=== PATIENT | male | born 1965 | race Caucasian/White ===

== ENCOUNTER → 2016-08-16 | Outpatient (CLI) | payer OTHER ==
--- NOTE | 2016-08-17 06:31 | PAP/PSG TECHNICIAN REPORT ---
[facility] Director Of Software Development Polysomnogram Report Study name: None Report date: 08/17/2016 Study date: 08/16/2016 Referring Physician: Jenny Appiah M.D. Name: MISTI MORALES Interpreting Physician: Lionel Guido D.O. Date of : 1965 Director Of Software Development: Janet Allen [facility]. Sex: Male Age: 51 Study Type: PSG Weight: 210 lbs Height: 51 years, Height 6' 1" BMI: 27.7 Medications: ALLOPURINOL 300 MG, CETIRIZINE 10 MG, EMTRICITABINE 200 MG/TENOFOVIR 300 MG, FLUTICASONE PROPIONATE, HEPATITIS B VACCINE, HYDROQUINONE, LEVOTHYROXINE 0.1 MG, LISINOPRIL 10 MG, OMEPRAZOLE 20 MG, RIVAROXARAN 20 MG, SILDENAFIL CITRATE 100 MG, SODIUM CHLORIDE 0.65% NASAL SPRAY Patient History 51 yr-old male here for a baseline study. He has a history of witnessed apnea while in recovery from surgery. His [place] scale is 11. The test was started on room air. ETCO2 testing was not utilized during this study. Room 3 Parameters Monitored NPSG: E1-M2, E2-M1, Fp1-M2, Fp2-M1, F3-M2, F4-M2, F4-M1, C3-M2, C4-M2, C4-M1, O1-M2, O2-M2, O2-M1, T3-M2, T4-M1, P3-M2, P4-M1, CHIN1, CHIN2, HR, EKG, Legs, PFLOW, SNOR, FLOW, CFLOW, Tidal Volume, THOR, ABDO, SpO2, PLTH, CPRESS, ETCO2 Wave, ETCO2, pH Sleep Architecture Sleep Stages Time at Lights Off 10:56:53 PM STAGES Time (min.) TST (%) Time at Lights On 5:48:23 AM Wake 55.0 -- Total Recording Time (TRT) 411.50 min. N1 34.0 10 Total Sleep Period (TSP) 385.5 min. N2 216.0 61 Total Sleep Time (TST) 356.5min. N3 0.0 0 Awake Time 55.0 min. REM 106.5 30 Wake after Sleep Onset 29.0 min. Sleep Efficiency (SE) 87 % Sleep Onset Latency (YAYO) 26.0 min. Number of Stage 1 Shifts None Awakenings 9 Stage Changes 36 Number of REM periods 5 REM 106.5 30 REM Latency 72.5 min. NREM 250.0 70 Body Position Analysis Supine Right Left Side Prone Vertical Total Sleep Time (min.) 76.3 99.0 208.5 307.50 0.0 0.0 Total Sleep Time (%) 14% 28% 58% 86 0% N/A% Total Sleep Time REM (min.) 12.0 24.0 70.5 None 0.0 0.0 Total Sleep Time NREM (min.) 37.0 75.0 138.0 None 0.0 0.0 Intermittent Wake (min.) 27.3 15.0 12.8 None 0.0 0.0 Total Sleep Period (%) 16% None None None None None Arousals Myoclonus (PLM) * Events Count Index Events Count Index Spontaneous 17 3 Events Awake (PLMW) 32 34.9 Respiratory 2 0.5 Events Asleep w/ Arousal (PLMA) 5 0.8 PLM 5 1 Events Asleep w/o Arousal (PLMS) 28 4.7 Snoring 8 1 Total Asleep 33 5.6 Total 32 5 Total 65 9 Respiratory Analysis * CA OA MA CH H RERA Total Count 0 0 0 0 13 3 13 Index 0.0 0.0 0.0 0 2.2 1 2.7 Mean Duration 0.0 0.0 0.0 0.00 21.3 18.9 20.8 Longest Duration 0.0 0.0 0.0 0.00 0.0 20.9 41.7 Respiratory Event Summary Total Supine ~Supine Right Left Prone REM NREM Apneas Count 0 0 0 0 0 N/A 0 0 Index 0.0 0 0 0.0 0.0 N/A 0 0 Hypopneas (4% Desat) Count 13 6 7 4 3 N/A 11 2 Index 2.2 7.3 1 2.4 0.9 N/A 6.2 0.5 Apneas & All Hypopneas Count 13 6 7 4 3 N/A 11 2 Index 2.2 7 1 2 1 N/A 6.2 0.5 Respiratory Events (Special Delivery Clerk+All Hyp+RERA) Count 13 9 7 4 3 N/A 11 2 Index 2.7 11 1 2.4 0.9 N/A 7.9 0.5 Respiratory Related Arousal Count 2 9 0 0 0 N/A 3 0 Index 0.5 4 0 0 0 N/A 2 0 Snoring Analysis Supine Right Left Prone REM NREM Total Snore duration 2.5 min Snores count 52 86 22 N/A 22 138 160 Snore mean duration 0.9 Sec Snores index 64 52 6 N/A 12.4 33.1 26.9 TST with snoring (%) 0.7% Desaturation Event Summary: Minimum %SpO2 Event Count Mean/Min/Max Duration(sec.) Desaturation Index % Time In Bed > 90 19 33.2 / 7.5 / 60.0 2.9 97.3 86 - 90 2 14.0 / 7.8 / 20.3 10.9 2.7 81 - 85 0 N/A 0.0 0.0 76 - 80 0 N/A 0.0 0.0 71 - 75 0 N/A 0.0 0.0 66 - 70 0 N/A 0.0 0.0 61 - 65 0 N/A 0.0 0.0 56 - 60 0 N/A 0.0 0.0 51 - 55 0 N/A 0.0 0.0 < 50 0 N/A 0.0 0.0 Total REM NREM Awake <50% 0.0 min. 0.0 min. 0.0 min. 0.0 min. 51 - 60% 0.0 min. 0.0 min. 0.0 min. 0.0 min. 61 - 70% 0.0 min. 0.0 min. 0.0 min. 0.0 min. 71 - 80% 0.0 min. 0.0 min. 0.0 min. 0.0 min. 81 - 90% 11.0 min. 6.9 min. 3.8 min. 0.3 min. 91 - 100% 395.4 min. 99.6 min. 241.6 min. 54.1 min. Average 92 92 92 93 Minimum SpO2 86 86 87 90 Desaturation Event Index 2.8 7.9 0.5 3.3 # Desat. Events below 89% 4 4 N/A N/A Time(%) with Saturation below 89% 0.2 0.2 0.1 0.0 Time(min.) with Saturation below 89% 1.0 0.8 0.2 0.0 Time (mins) REM (mins) NREM (mins) % of TST SpO2 Below 90% 15 13 N2 1.1 SpO2 Below 88% 2 0 0 0 Heart Rate Analysis Min (bpm) Max (bpm) Average (bpm) Awake 48 93 65 NREM 45 127 58 REM 45 77 57 Overall 45 127 58 Supplemental O2 Values Minimum O2 level: None Value Start Time End Time Director Of Software Development Comments Mr. Morales slept in the right, left, and supine positions. No cardiac arrhythmias or PLMs noted. No bruxism noted. Snoring was noted and scored as a 2 on a scale of 1 through 5. (0=no snoring, 5=snoring loud enough to be heard through a closed door or down the onofre way). He did not wake up to use the restroom during the night. Mr. Morales stated that he slept about the same as usual. The final report will be interpreted and signed by a sleep physician. The completed physician report will then be placed in the patient medical record. Therapy (cm H2O) 0 TIB (min.) 411.5 TST (min.) 356.5 Sleep Onset (min.) 26.0 REM Onset From Sleep (min.) 72.5 Sleep Efficiency % 87 Wakefulness (%) 13 Wakefulness (min.) 55.0 NREM 1 (%) 10 NREM 1 (min.) 34.0 NREM 2 (%) 61 NREM 2 (min.) 216.0 NREM 3 (%) 0 NREM 3 (min.) 0.0 REM (%) 30 REM (min.) 106.5 # Arousals 32 Arousal Index 5 # Snore 160 Snore Index 26.9 AHI 2.2 AHI Supine 7 AHI Non-Supine 1 NREM AHI 0.5 REM AHI 6.2 RDI 2.7 # Obstructive Apnea 0 # Central Apnea 0 # Mixed Apnea 0 # Hypopneas 13 RERAs 3 Total Respiratory Events 16 Time Below SpO2 89% (min.) 1.0 Mean NREM SpO2 (%) 92 Mean REM SpO2 (%) 92 Mean Sleep SpO2 (%) 92 Min NREM SpO2 (%) 87 Min REM SpO2 (%) 86 Position Supine (min.) 76.3 Position Non-supine (min.) 307.5 LM Index Sleep 5.6 LM Index NREM 6.0 LM Index REM 4.5 Mean Heart Rate (bpm) 58 Min Heart Rate (bpm) 45
--- NOTE | 2016-08-27 08:40 | Sleep Study ---
Sleep Study Report Date of Service: 08/16/2016 Sleep Study Report Clinical data: The patient is a 51-year-old male with a history of witnessed apnea while in recovery from surgery. He has had a prior UPPP surgery. His [place] score is 11 out of a possible 24. His BMI is 27.7. This was an in-lab overnight polysomnography. Sleep architecture: The total sleep period was 385.5 minutes. The total sleep time was 356.5 minutes. Sleep efficiency was minimally reduced to 87 percent. The sleep latency was mildly prolonged at 26 minutes. Wake after sleep onset was 29 minutes. The REM latency was normal at 72.5 minutes. Sleep consisted of stage N1 10 percent, stage N2 61 percent, stage N3 0 percent , and stage REM 30 percent. Arousal data: Patient had a total of 32 arousals including 17 spontaneous arousals, 2 respiratory arousals, 5 PLM arousals, and 8 snoring arousals. The arousal index is 5. PLM data: Patient had a total of 33 periodic limb movements of sleep for an index of 5.6. Were 5 arousals associated with limb movements for a PLM arousal index of 0.8. EKG: The underlying rhythm was normal sinus. The cardiac rates ranged from 45 to 77 beats per minute. The average heart rate was 58 beats per minute. There were episodes of slight pauses possibly representing sinus arrhythmia versus blocked PACs. Respiratory data: The patient had a total of 13 respiratory events, all hypopneas. Hypopneas were scored according to the 4 percent desaturation rule. There were no apneas. The apnea-hypopnea index was 2.2 which is normal . There were 3 RERAS. The RDI was 2.7 which is normal. The mean duration of hypopneas was 21.3 seconds. These results reflected no significant sleep apnea. Oximetry data: The average saturation for the night was 92 percent. The minimum saturation was 86 percent. There was a total of only 1 minutes with saturations less than 89 percent. Environmental Research Scientist comments: Patient slept on the right, left, and supine positions. No bruxism noted. Snoring was noted and scored as a 2 on a scale of 1 through 5. The patient stated he slept about the same as usual. Impressions: 1. No evidence of significant sleep apnea 2. Mild snoring Comments: The patient had a fairly good night sleep. His sleep efficiency was minimally reduced. His sleep architecture was not significantly abnormal. He had relatively few arousals. There were just a mild number of limb movements. He had no significant sleep apnea. His snoring was mild. Recommendations: 1. Follow-up is deferred to his referring physician. Copies To 1: Lionel Guido DO; Jenny Appiah M.D.
== END | disposition home or self-care (01) ==
LOC: C.NEUR 21:00
PROVIDERS: ATTEND Family Medicine Adult Medicine
DX: R06.81 Apnea, not elsewhere classified (principal); R06.83 Snoring